=== PATIENT | male | born 1965 | race Caucasian/White ===

== ENCOUNTER → 2023-10-19 | Outpatient (REF) | payer MEDICARE, OTHER, MEDICAID | LOC: M SFHCDERM 17:06 | PROVIDERS: ATTEND Nurse Practitioner Family | DX: R21 Rash and other nonspecific skin eruption (principal) ==

== ENCOUNTER → 2024-03-13 | Outpatient (REF) | payer MEDICARE, OTHER, MEDICAID | LOC: M SFHCDERM 12:21 | PROVIDERS: ATTEND Nurse Practitioner Family | DX: L98.491 Non-pressure chronic ulcer of skin of other sites limited to breakdown of skin (principal) ==

== ENCOUNTER → 2024-10-09 | Outpatient (REF) | payer MEDICARE, OTHER, MEDICAID | LOC: M SFHCDERM 17:18 | PROVIDERS: ATTEND Physician Assistant | DX: L02.222 Furuncle of back [any part, except buttock and flank] (principal) ==